=== PATIENT | male | born 1980 | race Two or more races ===

== ENCOUNTER 2017-02-03 12:20 | Emergency (ER) | payer SELFPAY ==
[~2017-02-03] VITALS: Ht 170.2 cm; Wt 72.6 kg
[2017-02-03] MEDS ORDERED: Morphine Sulfate 4mg/ml Inj IVP ONE (12:30)
[2017-02-03] MEDS ORDERED: Tetanus/Diptheria/Pertussis Vaccine 0.5ml Syr IM ONE (12:30)
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
[2017-02-03 12:57] VITALS: BP 121/70
[2017-02-03] MEDS ORDERED: Haloperidol 5mg/ml Inj ONE (14:56)
[2017-02-03] MEDS ORDERED: Haloperidol 5mg/ml Inj IM ONE (15:00)
[2017-02-03 15:42] LABS: BASOPHILS % (AUTO) 0.4 % (0.0-2.0); EOSINOPHILS % (AUTO) 0.4 % (0.0-3.0); LYMPHOCYTES % (AUTO) 14.5 % (20.0-45.0); MEAN CORPUSCULAR HEMOGLOBIN 29.9 PG (27.0-31.0); MEAN CORPUSCULAR VOLUME 97 FL (80-99); MEAN PLATELET VOLUME 4.8 FL (6.5-10.1); MONOCYTES % (AUTO) 3.8 % (1.0-10.0); NEUTROPHILS % (AUTO) 80.9 % (45.0-75.0); PLATELET COUNT 285 K/UL (150-450); RED BLOOD COUNT 4.37 M/UL (4.70-6.10); RED CELL DISTRIBUTION WIDTH 12.7 % (11.6-14.8); WHITE BLOOD COUNT 10.6 K/UL (4.8-10.8)
[2017-02-03 15:48] LABS: PROTHROMBIN TIME 10.2 SEC (9.30-11.50)
[2017-02-03 15:53] LABS: ANION GAP 12 mmol/L (5-15); CALCIUM 8.2 MG/DL (8.5-10.1); CARBON DIOXIDE 26 MMOL/L (21-32); CHLORIDE 100 MMOL/L (98-107); GLOMERULAR FILTRATION RATE > 60 mL/min (>60); POTASSIUM 3.8 MMOL/L (3.5-5.1); SODIUM 138 MMOL/L (136-145)
[2017-02-03 15:58] LABS: ALANINE AMINOTRANSFERASE 28 U/L (12-78); ALBUMIN/GLOBULIN RATIO 1.3 (1.0-2.7); ASPARTATE AMINO TRANSFERASE 34 U/L (15-37); TOTAL PROTEIN 7.9 G/DL (6.4-8.2)
[2017-02-03 16:04] VITALS: BP 99/55
[2017-02-03 16:42] VITALS: BP 99/55
--- NOTE | 2017-02-04 08:45 | Diagnostic Imaging Report ---
Indication: Neck pain. Technique: Continuous helical imaging of the cervical spine was obtained transaxially from the skull base to the upper thoracic spine. 2-D coronal and sagittal reformatted images were obtained. Automatic Exposure Control was utilized. Total Dose length Product (DLP): 680.[address] Dose Index Volume (CTDIvol): 14.94,14.35 mGy Comparison: None Findings: There is no evidence of an acute fracture or malalignment. Atlantoaxial alignment appears normal. Height and configuration of the vertebral bodies and intervertebral discs are within normal limits. Uncovertebral joints and facets are unremarkable. There is no soft tissue swelling. Evaluation limited by motion Impression: Negative cervical spine CT [facility] has communicated the preliminary results to the Emergency Department. Their findings are largely concordant with this report. The CT scanner at [facility] is accredited by the [employer] and the scans are performed using dose optimization techniques as appropriate to a performed exam including Automatic Exposure control.
--- NOTE | 2017-02-04 09:12 | Diagnostic Imaging Report ---
Indication: Trauma Technique: Continuous helical transaxial imaging of the maxillofacial structures obtained without intravenous contrast administration. Coronal 2-D reformats were also obtained. Study obtained in a Siemens sensation [address] Automatic Exposure Control was utilized. Total Dose length Product (DLP): 619.[address] Dose Index Volume (CTDIvol): 28.19 mGy Comparison: None Findings: There is an acute fracture of the ramus of the left mandible as well as a left parasymphysis fracture. TMJ is normal. The left maxillary sinus is opacified, likely blood. There are fractures involving the medial and posterior leo of the left maxillary sinus. Posterior wall fracture may extend into part of the left orbital floor near the orbital apex. The orbits are symmetric and grossly intact otherwise. There is no proptosis or evidence of retrobulbar hemorrhage. In the anterior part of the left upper teeth, there is suggestion of traumatic loosening of 2 of the teeth as there is posterior displacement of #9, #10 with associated fracture of the posterior wall of the alveolar ridge. (For example axial image 29 series 4). Please correlate clinically. Soft tissue swelling noted over the left face and jaw. Submucosal thickening demonstrated within the ethmoid sinuses bilaterally probably due to sinusitis although part of this may be traumatic in nature. There is congestion likely blood within the nasal cavity. The nasal septum is unremarkable. The pterygoid plates appear intact. Remainder of the osseous structures are unremarkable. IMPRESSION: Acute left mandible fracture. Acute left maxillary sinus fractures involving the medial and posterolateral wall. Opacification internally within the antrum may be due to blood or could be on the basis of pre-existing sinusitis. Evidence of pre-existing chronic sinusitis involving the ethmoid region. Displacement and fracture of the left paramedian teeth (#10 and #9). [facility] has communicated the preliminary results to the Emergency Department. Their findings are largely concordant with this report. The CT scanner at [facility] is accredited by the [employer] and the scans are performed using dose optimization techniques as appropriate to a performed exam including Automatic Exposure control.
--- NOTE | 2017-02-04 09:40 | Diagnostic Imaging Report ---
Indication: Head trauma. Headache Technique: Contiguous 5 mm thick transaxial imaging of the head obtained in a Siemens Sensation [address] scanner. Soft tissue and bone windows generated. Automatic Exposure Control was utilized. Total Dose length Product (DLP): 1460.[address] Dose Index Volume (CTDIvol): 70.38 mGy Comparison: none Findings: The size and configuration of the cortical sulci, basal cisterns, and ventricles are within normal limits for age. There is no mass effect, midline shift, or edema identified. There is no evidence of acute hemorrhage or abnormal intra-axial or extra-axial fluid collections. Acute left maxillary and mandible fractures are present.. Please refer to the separately dictated CT facial bones. Impression: No intracranial mass effect, edema or acute bleed. Refer to the CT facial bones report. [facility] has communicated the preliminary results to the Emergency Department. Their findings are largely concordant with this report. The CT scanner at [facility] is accredited by the [employer] and the scans are performed using dose optimization techniques as appropriate to a performed exam including Automatic Exposure control.
--- NOTE | 2017-02-04 14:54 | Diagnostic Imaging Report ---
Indication: Pain Findings: 3 views of the left shoulder were obtained. Alignment of the left shoulder is normal. No acute fracture is identified. Soft tissues are unremarkable. Impression: No acute injury
--- NOTE | 2017-02-04 14:54 | Diagnostic Imaging Report ---
Indication: Pain Findings: 2 views of the left forearm were obtained. No acute fractures, malalignment, erosions or periostitis are identified. Bone mineralization is within normal limits. Soft tissues are unremarkable. Impression: Negative for acute injury.
--- NOTE | 2017-02-04 14:55 | Diagnostic Imaging Report ---
Indication: Pain Findings: 3 views of the left elbow were obtained. No acute fractures, malalignment, erosions or periostitis are identified. Soft tissues are unremarkable. Impression: No acute injury
== END 2017-02-03 16:45 | disposition short-term general hospital (02) ==
LOC: EDBD 12:20 → EMR 12:35
DX: S02.92XA Unspecified fracture of facial bones, initial encounter for closed fracture (principal); S50.12XA Contusion of left forearm, initial encounter; S01.511A Laceration without foreign body of lip, initial encounter; S02.642A Fracture of ramus of left mandible, initial encounter for closed fracture; S09.90XA Unspecified injury of head, initial encounter; Z23 Encounter for immunization; Y04.2XXA Assault by strike against or bumped into by another person, initial encounter; Y92.9 Unspecified place or not applicable
CPT/HCPCS: 36415; 70450; 70486; 72125; 73030; 73080; 73090; 80053; 85025; 85610; 85730; 90471; 90715; 96372; 96374; 99285; J1630; J2270

== ENCOUNTER 2018-12-04 15:09 | Emergency (ER) | payer MEDICAID ==
[~2018-12-04] VITALS: Ht 175.3 cm; Wt 72.6 kg
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
[2018-12-04 15:20] VITALS: BP 120/80
[2018-12-04] MEDS ORDERED: Bactrim-DS 1 tab ORAL ONE (15:30)
[2018-12-04] MEDS ORDERED: Cephalexin 500mg cap ORAL ONE (15:30)
[2018-12-04] MEDS ORDERED: Naproxen 500mg tab ORAL ONE (15:30)
[2018-12-04] MEDS ORDERED: Tetanus/Diptheria/Pertussis IM ONE (15:30)
[2018-12-04] MEDS ORDERED: Acetaminophen 500mg (ES) tab ORAL ONE (15:30)
[2018-12-04] MEDS ORDERED: Cephalexin 250mg/5ml Susp 100mL Bottle ORAL ONE (15:30)
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
[2018-12-04] MEDS ORDERED: BACTRIM DS TAB1 EAC1 ORAL (15:49)
[2018-12-04] MEDS ORDERED: NAPROXEN250 MG ORAL (15:49)
[2018-12-04] MEDS ORDERED: CEPHALEXIN500 MG ORAL (15:49)
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
[2018-12-04] MEDS ORDERED: Bacitracin Oint UD TOPIC ONE (16:00)
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
== END 2018-12-04 15:58 | disposition home or self-care (01) ==
LOC: EDBD 15:09 → EMR 15:51
DX: S51.801A Unspecified open wound of right forearm, initial encounter (principal); S81.801A Unspecified open wound, right lower leg, initial encounter; W34.010A Accidental discharge of airgun, initial encounter; Y92.9 Unspecified place or not applicable; Z23 Encounter for immunization
CPT/HCPCS: 73090; 73590; 90471; 90715; Z7502; 99284